=== PATIENT | female | born 1945 | race Caucasian/White ===

== ENCOUNTER 2018-11-11 20:12 | Emergency (ER) | payer SELFPAY ==
[~2018-11-11] VITALS: Ht 149.9 cm; Wt 53.0 kg
[2018-11-12] MEDS ORDERED: TETRACAINE 0.5% OPHTH DROPS 4ML OP ONE (01:00)
[2018-11-12] MEDS ORDERED: IBUPROFEN 400MG TABLET PO ONE (01:00)
[2018-11-12] MEDS ORDERED: FLUORESCEIN SODIUM 1MG/STRIP OP ONE (01:00)
[2018-11-12 01:40] VITALS: BP 151/87
== END 2018-11-12 01:42 | disposition home or self-care (01) ==
LOC: ER 20:12
DX: S05.01XA Injury of conjunctiva and corneal abrasion without foreign body, right eye, initial encounter (principal); E78.00 Pure hypercholesterolemia, unspecified; Z98.890 Other specified postprocedural states; X58.XXXA Exposure to other specified factors, initial encounter; Y93.89 Activity, other specified; Y92.89 Other specified places as the place of occurrence of the external cause; Y99.8 Other external cause status
CPT/HCPCS: 99283